=== PATIENT | female | born 1950 | race Caucasian/White ===

== ENCOUNTER → 2024-06-13 | Day surgery (SDC) | payer MEDICARE ==
[2024-06-12 14:00] LABS: BASOPHILS # (AUTO) 0.1 (0.0-0.1); BASOPHILS % 1.5 % (0.0-1.0); EOSINOPHILS # (AUTO) 0.2 (0.0-0.4); EOSINOPHILS % 3.4 % (0.0-6.0); HEMATOCRIT 31.6 % (34.2-44.1); HEMOGLOBIN 10.3 g/dL (12.0-16.0); LYMPHOCYTES # (AUTO) 1.6 (1.0-3.2); LYMPHOCYTES % 29.8 % (18.0-39.1); MEAN CORPUSCULAR HEMOGLOBIN 27.9 pg (28-32); MEAN CORPUSCULAR HGB CONC 32.6 g/dL (31-35); MEAN CORPUSCULAR VOLUME 85.6 fL (81-99); MONOCYTES # (AUTO) 0.8 (0.2-0.8); MONOCYTES % 15.8 % (4.4-11.3); NEUTROPHILS # (AUTO) 2.6 (2.1-6.9); NEUTROPHILS % 49.3 % (38.7-80.0); PLATELET COUNT 253 x10e3/uL (140-360); RED BLOOD COUNT 3.69 x10e6/uL (3.6-5.1); RED CELL DISTRIBUTION WIDTH 14.6 % (11.7-14.4); WHITE BLOOD COUNT 5.24 x10e3/uL (4.8-10.8)
[2024-06-12 14:16] LABS: INR 0.89; PROTHROMBIN TIME 12.6 seconds (11.9-14.5)
[2024-06-12 14:17] LABS: PARTIAL THROMBOPLASTIN TIME 27.5 seconds (23.8-35.5)
[2024-06-12 14:25] LABS: ALBUMIN 3.7 g/dL (3.5-5.0); ALBUMIN/GLOBULIN RATIO 1.4 (0.8-2.0); ANION GAP 15.2 mmol/L (8-16); BILIRUBIN,TOTAL 0.4 mg/dL (0.2-1.2); CALCIUM 8.9 mg/dL (8.4-10.2); CREATININE, SERUM 0.86 mg/dL (0.57-1.11); POTASSIUM 4.2 mmol/L (3.5-5.1); TOTAL PROTEIN 6.4 g/dL (6.5-8.1)
[~2024-06-13] MED LIST: CELEBREX100 MG PO; CYMBALTA30 MG; DEXAMETHASONE SOD PHOS INJ 4 MG/ML SDV ONE; FAMOTIDINE 20 MG/2 ML VIAL IV ONE; FAMOTIDINE20 MG PO; FENTANYL CITRATE/PF 100MCG/2 ML INJ ONE; GABAPENTIN300 MG PO; LIDOCAINE HCL 2% LOCAL INJ 5 ML SDV VIAL INJ ONE; LIPITOR20 MG PO; LOSARTAN POTASS25 MG PO; METFORMIN HCL500 MG PO; METOPROLOL TART25 MG PO; NEURONTIN400 MG PO; ONDANSETRON HCL INJ 2MG/ML 2ML 2 MG/ML VIAL ONE; OSTEO BI-FLEX1 EAC2 PO; PROPOFOL IV EMULSION 10 MG/ML 20 ML VIAL ONE; PROTONIX20 MG PO; SEVOFLURANE INHAL SOLN 250 ML PEN BTL ONE; TUMERIC PO; VITAMIN D31250 MCG PO; VITAMIN E400 UNI1 PO
[2024-06-13] MEDS: LACTATED RINGER'S 1,000 ML ONE (07:59)
[2024-06-13] MEDS: ALBUTEROL/IPRATROPIUM 3 ML NEB ONE (08:24)
[2024-06-13 08:25] VITALS: PULSE 57; RESP 16; O2SAT 93
[2024-06-13 10:16] VITALS: TEMP 98.5
[2024-06-13 11:35] VITALS: BP 135/66; PULSE 61; RESP 16; O2SAT 94
[2024-06-13 15:30] LABS: BODY FLUID TYPE LAVAGE
[2024-06-13 15:31] LABS: BODY FLUID COLOR COLORLESS
[2024-06-13 15:32] LABS: BODY FLUID APPEARANCE SL.CLOUDY
[2024-06-13 17:21] LABS: LYMPHOCYTES,BODY FLUID 57 %; NEUTROPHILS,BODY FLUID 25 %; OTHER CELLS,BODY FLUID 7 %; TOTAL CELLS COUNTED (DIFF) 100
[2024-06-13 17:22] LABS: MONO/MACROPHG,BODY FLUID 11 %
[2024-06-13 17:25] LABS: RBC,BODY FLUID 2000 cells/uL; WBC,BODY FLUID 999 cells/uL
== END | disposition home or self-care (01) ==
LOC: ENDO 07:14
PROVIDERS: ATTEND Internal Medicine Critical Care Medicine
DX: J47.9 Bronchiectasis, uncomplicated (principal); J18.9 Pneumonia, unspecified organism; R91.8 Other nonspecific abnormal finding of lung field; D84.9 Immunodeficiency, unspecified; G47.33 Obstructive sleep apnea (adult) (pediatric); M06.9 Rheumatoid arthritis, unspecified; R73.03 Prediabetes; M79.7 Fibromyalgia; I10 Essential (primary) hypertension; I49.9 Cardiac arrhythmia, unspecified; E78.5 Hyperlipidemia, unspecified; Z01.812 Encounter for preprocedural laboratory examination; Z79.84 Long term (current) use of oral hypoglycemic drugs; Z79.899 Other long term (current) drug therapy; Z68.35 Body mass index [BMI] 35.0-35.9, adult; Z91.81 History of falling
CPT/HCPCS: 31624; 36415 ×2; 71046; 80053; 82948; 85025; 85610; 85730; 87102; 87116; 87205; 87206 ×2; 87254; 87335; 88112; 88305; 88342; 89051; 93005; 94640; 94799; J1100; J2003; J2405; J2704; J3010; J7121; 31622; J1308